=== PATIENT | female | born 1995 | race Two or more races ===

== ENCOUNTER 2020-03-16 00:55 | Emergency (ER) | payer OTHER ==
[~2020-03-16] VITALS: Ht 154.9 cm; Wt 52.2 kg
[2020-03-16] MEDS ORDERED: KETO10TA2 PO (03:15)
== END 2020-03-16 03:22 | disposition home or self-care (01) ==
LOC: ER 00:55
DX: S60.222A Contusion of left hand, initial encounter (principal); W18.09XA Striking against other object with subsequent fall, initial encounter; Y93.89 Activity, other specified; Y92.69 Other specified industrial and construction area as the place of occurrence of the external cause; Y99.8 Other external cause status

== ENCOUNTER 2025-07-23 06:57 | Emergency (ER) | payer OTHER ==
[~2025-07-23] VITALS: Ht 152.4 cm; Wt 56.7 kg
[~2025-07-23 06:57] MED LIST: KETO10TA2 PO
[2025-07-23] MEDS ORDERED: ORPHENADRINE CITRATE 30 MG/ML AMPUL ONE (08:25)
[2025-07-23] MEDS ORDERED: KETOROLAC TROMETHAMINE 60 MG VIAL IM ONE ×2 (08:26→08:30)
[2025-07-23] MEDS ORDERED: ORPHENADRINE CITRATE 30 MG/ML AMPUL IM ONE (08:30)
[2025-07-23] MEDS ORDERED: NORFLEX100MG PO (11:13)
== END 2025-07-23 11:21 | disposition home or self-care (01) ==
LOC: ER 06:57
DX: S93.491A Sprain of other ligament of right ankle, initial encounter (principal); X50.9XXA Other and unspecified overexertion or strenuous movements or postures, initial encounter; Y93.89 Activity, other specified; Y92.018 Other place in single-family (private) house as the place of occurrence of the external cause; Z88.0 Allergy status to penicillin; J45.909 Unspecified asthma, uncomplicated